=== PATIENT | male | born 1965 ===

== ENCOUNTER 2024-01-27 08:00 | Inpatient (IN) | payer OTHER ==
[~2024-01-27] VITALS: Ht 162.6 cm; Wt 98.4 kg
[2024-01-27 09:19] LABS: PH,URINE 5.5 (5.0-8.0); URINE APPEARANCE Clear; URINE BILIRRUBIN Negative (NEGATIVE); URINE BLOOD Negative; URINE COLOR Yellow; URINE GLUCOSE Negative (NEGATIVE); URINE KETONE Negative (NEGATIVE); URINE LEUKOCYTE Negative; URINE NITRATE Negative; URINE PROTEIN Negative (NEGATIVE); URINE UROBILINOGEN 0.2 E.U./dl
[2024-01-27 09:22] LABS: URINE RBC 7.9 uL (0.0-20.8)
[2024-01-27 09:25] LABS: HEMATOCRIT 46.9 % (39.0-48.0); HEMOGLOBIN 15.6 g/dL (13-16.00); MEAN CELL VOLUME 90.5 fL (80.0-100.00); MEAN CORPUSCULAR HEMOGLOBIN 30.2 pg (27.00-32.0); MEAN CORPUSCULAR HGB CONC 33.4 g/dl (32.0-36.0); PLATELET COUNT 170 K/uL (150-450); RED BLOOD COUNT 5.18 M/uL (4.00-6.00); RED CELL DISTRIBUTION WIDTH 13.9 % (11.5-14.5)
[2024-01-27 09:37] LABS: URINE BACTERIA 1.2 uL (0.0-1933); URINE CAST 0.15 uL (0.0-1.40); URINE EPITHELIAL CELLS 1.2 uL (0.0-38.8)
[2024-01-27] MEDS ORDERED: LOSARTAN POTAS100 MG (09:57)
[2024-01-27] MEDS ORDERED: SPIRONOLACTONE25 MG (09:58)
[2024-01-27] MEDS ORDERED: AMLODIPINE-OLM1 EAC3 (09:58)
[2024-01-27 09:59] LABS: INR 0.98; PARTIAL THROMBOPLASTIN TIME 26.8 SECONDS (22.0-34.0); PROTHROMBIN TIME 10.7 SECONDS (9.0-11.5)
[2024-01-27] MEDS ORDERED: TOPROL XL50 M1 (09:59)
[2024-01-27] MEDS ORDERED: TADALAFIL5 MG (09:59)
[2024-01-27] MEDS ORDERED: ATORVASTATIN CA20 MG (09:59)
[2024-01-27] MEDS ORDERED: METFORMIN HCL500 M3 (09:59)
[2024-01-27] MEDS ORDERED: TOLTERODINE TART4 MG (10:00)
[2024-01-27] MEDS ORDERED: FLUCONAZOLE100 MG (10:00)
[2024-01-27] MEDS ORDERED: TAMS0.4C (10:01)
[2024-01-27 10:28] LABS: CALCIUM 9.9 mg/dL (8.5-10.1); CREATININE SERUM 0.93 mg/dL (0.70-1.30); GFR 83.74; POTASSIUM 4.2 mEq/L (3.5-5.1)
[2024-01-27 11:44] LABS: RH POSITIVE
[2024-02-04] MEDS ORDERED: AMLODIPINE BESY10 MG (15:04)
[2024-02-04] MEDS ORDERED: CHLORTHALIDONE25 MG (15:04)
[2024-02-04] MEDS ORDERED: TERBINAFINE HC250 MG (15:05)
[2024-02-04] MEDS ORDERED: ENOXAPARIN SODIUM 40 MG/0.4 ML SYRINGE SUBCUTANEO ONE (15:15)
[2024-02-04] MEDS ORDERED: HEMOSTATIC MATRIX 1 KIT KIT TOP ONE (15:15)
[2024-02-04] MEDS ORDERED: SURGIFLO APPLICATOR 1 EACH APPL TOP ONE (15:15)
[2024-02-04] MEDS ORDERED: CEFAZOLIN SODIUM 1,000 MG in 0.9 % SODIUM CHLORIDE 50 ML IV ONE (15:15)
[2024-02-04] MEDS ORDERED: OxyCODONE HCL/APAP UD (PERCOCET) PO PRN (20:30)
[2024-02-04] MEDS ORDERED: ONDANSETRON HCL 2 MG/ML VIAL IV PRN (20:30)
[2024-02-04] MEDS ORDERED: RINGERS SOLUTION,LACTATED 1,000 ML IV SCH (20:30)
[2024-02-04] MEDS ORDERED: DEXTROSE 50 % IN WATER 0.5 G/ML DISP.SYRIN IV PRN (20:45)
[2024-02-04] MEDS ORDERED: SUGAMMADEX SODIUM 200 MG/2 ML VIAL IV ONE (20:45)
[2024-02-04] MEDS ORDERED: INSULIN LISPRO 1,000 UNIT/10 ML UNITS SUBCUTANEO PRN (20:45)
[2024-02-04] MEDS ORDERED: FAMOTIDINE/PF 20 MG/2 ML VIAL IV SCH (21:00)
[2024-02-04] MEDS ORDERED: MORPHINE SULFATE 4 MG/ML VIAL IV ONE ×3 (21:15→22:00)
[2024-02-05] MEDS ORDERED: CEFAZOLIN SODIUM 1,000 MG VIAL IV SCH
[2024-02-05] MEDS ORDERED: GABAPENTIN 300 MG CAPSULE PO SCH (01:00)
[2024-02-05 02:20] VITALS: BP 130/60; O2SAT 94
[2024-02-05 06:45] LABS: HEMATOCRIT 43.7 % (39.0-48.0); HEMOGLOBIN 15.1 g/dL (13-16.00); MEAN CELL VOLUME 89.1 fL (80.0-100.00); MEAN CORPUSCULAR HEMOGLOBIN 30.8 pg (27.00-32.0); MEAN CORPUSCULAR HGB CONC 34.5 g/dl (32.0-36.0); PLATELET COUNT 181 K/uL (150-450); RED BLOOD COUNT 4.91 M/uL (4.00-6.00); RED CELL DISTRIBUTION WIDTH 14.2 % (11.5-14.5)
[2024-02-05 07:07] LABS: ALBUMIN 3.6 gm/dL (3.4-5.0); CREATININE SERUM 1.02 mg/dL (0.70-1.30); GFR 75.01; POTASSIUM 4.74 mEq/L (3.5-5.1)
[2024-02-05 08:00] VITALS: BP 147/72; O2SAT 98
[2024-02-05] MEDS ORDERED: AMLODIPINE BESYLATE 10 MG TABLET PO SCH (09:00)
[2024-02-05] MEDS ORDERED: SPIRONOLACTONE 25 MG TABLET PO SCH (09:00)
[2024-02-05] MEDS ORDERED: ENOXAPARIN SODIUM 40 MG/0.4 ML SYRINGE SUBCUTANEO SCH (09:00)
[2024-02-05] MEDS ORDERED: METOPROLOL SUCCINATE 50 MG TAB.SR.24H PO SCH (09:00)
[2024-02-05] MEDS ORDERED: LOSARTAN POTASSIUM 100 MG TABLET PO SCH (09:00)
[2024-02-05] MEDS ORDERED: POLYETHYLENE GLYCOL 3350 17 GM BLIST.PACK PO SCH (17:00)
== END 2024-02-05 12:50 | disposition home or self-care (01) | DRG 708 ==
LOC: O/R 02-04 05:16 → SURH 02-04 08:00 → EDBD 02-04 08:00 → SURH 02-04 13:15 → O/R 02-04 13:51 → SURH 02-04 21:37
PROVIDERS: ADMIT Urology; ATTEND Urology
PROC: 8E0W4CZ Robotic Assisted Procedure of Trunk Region, Percutaneous Endoscopic Approach (ICD-10-PCS; 2024-02-04)
PROC: 0VT04ZZ Resection of Prostate, Percutaneous Endoscopic Approach (ICD-10-PCS; principal; 2024-02-04 13:15)
DX: C61 Malignant neoplasm of prostate (principal); Z20.822 Contact with and (suspected) exposure to COVID-19
CPT/HCPCS: 55866; S2900